=== PATIENT | male | born 1985 | race Caucasian/White ===

== ENCOUNTER 2018-02-02 01:11 | Emergency (ER) | payer BC ==
[~2018-02-02 01:11] MED LIST: TETANUS & DIPHTHERIA TOX,ADULT 0.5 ML VIAL ONE
[2018-02-02] MEDS ORDERED: ACETAMINOPHEN 500 MG TAB ONE (01:39)
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
== END 2018-02-02 03:50 | disposition short-term general hospital (02) ==
LOC: ER 01:11
DX: S02.82XA Fracture of other specified skull and facial bones, left side, initial encounter for closed fracture (principal); Y04.2XXA Assault by strike against or bumped into by another person, initial encounter; Y93.9 Activity, unspecified; Y92.9 Unspecified place or not applicable; Z72.0 Tobacco use; Z23 Encounter for immunization; Z88.0 Allergy status to penicillin
CPT/HCPCS: 70450; 70486; 76377; 90714; 99285

== ENCOUNTER 2021-04-11 04:10 | Observation (INO) | payer BC, SELFPAY ==
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
--- NOTE | 2021-04-11 05:06 | EDPHYS ---
Physician Documentation [facility] Name: Vick Molina Age: 35 yrs Sex: Male : 1985 Arrival Date: 04/11/2021 Time: 04:15 Bed 25 Private MD: AMELIA Physician Zeus Gabriel HPI: 04/11 04:52 This 35 yrs old Male presents to ER via Ambulatory with complaints of S/S OF ken COVID. 04:52 The patient has shortness of breath at rest, with light activity. Onset: The ken symptoms/episode began/occurred 14 day(s) ago. Duration: The symptoms are continuous, and are steadily getting worse. The patient's shortness of breath is aggravated by coughing, exertion, supine position, is alleviated by sitting up, application of supplemental oxygen. The patient presents to the emergency department with wheezing, Current therapy: None, the patient was reported to have audible wheezing, productive cough, trouble breathing. Modifying factors: The symptoms are alleviated by cool environment, the symptoms are aggravated by cold weather, damp environment, exertion, talking. Associated signs and symptoms: Pertinent positives: chest pain, fever, hemoptysis. Severity of symptoms: At their worst the symptoms were moderate in the emergency department the symptoms are unchanged. The patient or guardian reports airway noise, cough, difficulty breathing, flu symptoms, arthralgias, low-grade fever, myalgias, no appetite. Historical: - Allergies: 04:32 PENICILLINS; bb - Home Meds: 04:32 None [Active]; bb - PMHx: 04:32 None; bb - PSHx: 04:32 None; bb - Immunization history:: Client reports having NOT received the Covid vaccine. - Social history:: Smoking status: Patient reports the use of cigarette tobacco products, smokes one pack cigarettes per day. Patient uses alcohol, Patient/guardian denies using street drugs. - Family history:: not pertinent. ROS: 04:52 Constitutional: Negative for fever, chills, and weight loss, Eyes: Negative for injury, ken pain, redness, and discharge, ENT: Negative for injury, pain, and discharge, Neck: Negative for injury, pain, and swelling, Abdomen/GI: Negative for abdominal pain, nausea, vomiting, diarrhea, and constipation, Back: Negative for injury and pain, : Negative for injury, bleeding, discharge, and swelling, MS/Extremity: Negative for injury and deformity, Skin: Negative for injury, rash, and discoloration, Neuro: Negative for headache, weakness, numbness, tingling, and seizure, Psych: Negative for depression, anxiety, suicide ideation, homicidal ideation, and hallucinations, Allergy/Immunology: Negative for hives, rash, and allergies, Endocrine: Negative for neck swelling, polydipsia, polyuria, polyphagia, and marked weight changes, Hematologic/Lymphatic: Negative for swollen nodes, abnormal bleeding, and unusual bruising. 04:52 Cardiovascular: Positive for chest pain. 04:52 Respiratory: Positive for cough, shortness of breath, wheezing, expiratory. Exam: 04:52 Constitutional: This is a well developed, well nourished patient who is awake, alert, ken and in no acute distress. Head/Face: Normocephalic, atraumatic. Eyes: Pupils equal round and reactive to light, extra-ocular motions intact. Lids and lashes normal. Conjunctiva and sclera are non-icteric and not injected. Cornea within normal limits. Periorbital areas with no swelling, redness, or edema. ENT: Nares patent. No nasal discharge, no septal abnormalities noted. Tympanic membranes are normal and external auditory canals are clear. Oropharynx with no redness, swelling, or masses, exudates, or evidence of obstruction, uvula midline. Mucous membranes moist. Neck: Trachea midline, no thyromegaly or masses palpated, and no cervical lymphadenopathy. Supple, full range of motion without nuchal rigidity, or vertebral point tenderness. No Meningismus. Chest/axilla: Normal chest wall appearance and motion. Nontender with no deformity. No lesions are appreciated. Cardiovascular: Regular rate and rhythm with a normal S1 and S2. No gallops, murmurs, or rubs. Normal PMI, no JVD. No pulse deficits. Abdomen/GI: Soft, non-tender, with normal bowel sounds. No distension or tympany. No guarding or rebound. No evidence of tenderness throughout. Back: No spinal tenderness. No costovertebral tenderness. Full range of motion. Male : Normal genitalia with no discharge or lesions. Skin: Warm, dry with normal turgor. Normal color with no rashes, no lesions, and no evidence of cellulitis. MS/ Extremity: Pulses equal, no cyanosis. Neurovascular intact. Full, normal range of motion. Neuro: Awake and alert, GCS 15, oriented to person, place, time, and situation. Cranial nerves II-XII grossly intact. Motor strength 5/5 in all extremities. Sensory grossly intact. Cerebellar exam normal. Normal gait. Psych: Awake, alert, with orientation to person, place and time. Behavior, mood, and affect are within normal limits. 04:52 ECG was reviewed by the Attending Physician. 04:52 Respiratory: moderate respiratory distress is noted, Respirations: labored breathing, that is mild, Breath sounds: bronchial sounds, decreased breath sounds, rhonchi, stridor, is not appreciated, + upper airway congestion. wheezing: inspiratory expiratory is heard in the left posterior upper lobe, right posterior upper lobe, left posterior lower lobe, right posterior middle lobe and right posterior lower lobe, Respiratory rate: 128 Vital Signs: 04:30 BP 124 / 86; Pulse 128; Resp 20 S; Temp 98.3(O); Pulse Ox 99% on R/A; Weight 95.25 kg bb (R); Height 6 ft. 0 in. (182.88 cm) (R); Pain 7/10; 07:15 BP 128 / 87; Pulse 103; Resp 22; Pulse Ox 95% ; Pain 6/10; eo2 08:15 BP 121 / 81; Pulse 101; Resp 19; Pulse Ox 96% ; eo2 09:15 BP 123 / 78; Pulse 100; Resp 20; Temp 99.2; Pulse Ox 96% ; Pain 5/10; eo2 10:00 BP 115 / 78; Pulse 94; Resp 20; Pulse Ox 96% ; eo2 11:00 BP 97 / 63; Pulse 94; Resp 18; Pulse Ox 96% ; eo2 12:00 BP 122 / 84; Pulse 90; Resp 20; Pulse Ox 96% ; Pain 5/10; eo2 13:00 BP 103 / 68; Pulse 86; Resp 17; Pulse Ox 96% ; eo2 13:59 BP 134 / 87; Pulse 91; Resp 18; Pulse Ox 97% on R/A; tm3 04:30 Body Mass Index 28.48 (95.25 kg, 182.88 cm) MDM: 04:42 Patient medically screened. ken 04:58 Differential diagnosis: Anemia Anxiety Reaction asthma, Bronchitis CHF exacerbation, ken Chronic Obstructive Pulmonary Disease acute asthma, exercise-induced asthma, reactive airway, CHF, anaphylaxis, URI, Myocardial Infarction pneumonia, Pneumothorax. Antibiotic administration: Rocephin and Zithromax given. The patient's [place] Deep Vein Thrombosis Score was calculated as follows: Heart Rate >100 BPM (1.5 Pts) Total Score: 0-2 Pts- Low Risk. Differential Diagnosis: Bronchitis Influenza Upper Respiratory Infection Sinusitis Pharyngitis Otitis Media Asthma Exacerbation Viral Syndrome Pneumonia. The patient's pulmonary embolism risk score was calculated as follows: the patients heart rate is greater than 100 beats per minute (1.5 Pts) Total Score: 0-2 points. This patient was found to be at low risk for a pulmonary embolism by using the Well's assessment criteria. Immunization status:. Data reviewed: vital signs, nurses notes. Data interpreted: bus driver/monitor: rate is 128 beats/min, rhythm is normal sinus rhythm, regular, Pulse oximetry: on room air is 99 %. Test interpretation: by ED physician or midlevel provider: ECG, plain radiologic studies. Counseling: I had a detailed discussion with the patient and/or guardian regarding: the historical points, exam findings, and any diagnostic results supporting the discharge/admit diagnosis, the presence of at least one elevated blood pressure reading (>120/80) during this emergency department visit, lab results, radiology results, the need for further work-up and treatment in the hospital. 04/11 04:38 Order name: COVID-19/FLU A+B (Document "Date of Onset" if Symptomatic) [facility] 04/11 04:39 Order name: COVID-19/FLU A+B; Complete Time: 06:03 [facility] 04/11 04:43 Order name: Basic Metabolic Panel [facility] 04/11 04:43 Order name: CBC with Diff [facility] 04/11 04:43 Order name: LFT's [facility] 04/11 04:43 Order name: Magnesium [facility] 04/11 04:43 Order name: NT PRO-BNP; Complete Time: 06:03 [facility] 04/11 04:43 Order name: PT-INR; Complete Time: 06:03 [facility] 04/11 04:43 Order name: D-Dimer; Complete Time: 06:03 [facility] 04/11 04:44 Order name: Basic Metabolic Panel; Complete Time: 06:03 [facility] 04/11 04:44 Order name: CBC with Automated Diff; Complete Time: 06:03 [facility] 04/11 04:44 Order name: Liver (Hepatic) Function; Complete Time: 06:03 [facility] 04/11 04:44 Order name: Magnesium; Complete Time: 06:03 [facility] 04/11 04:51 Order name: CRP; Complete Time: 06:03 [facility] 04/11 04:51 Order name: Ferritin; Complete Time: 06:03 [facility] 04/11 04:51 Order name: Lipase; Complete Time: 06:03 [facility] 04/11 04:59 Order name: Blood Culture Adult (2) 2 04/11 05:02 Order name: Troponin High Sensitivity; Complete Time: 06:03 [facility] 04/11 05:10 Order name: Manual Differential; Complete Time: 06:03 [facility] 04/11 11:50 Order name: C-Reactive Protein [facility] 04/11 11:50 Order name: C-Reactive Protein [facility] 04/11 11:50 Order name: CBC with Automated Diff [facility] 04/11 11:50 Order name: CBC with Automated Diff [facility] 04/11 11:50 Order name: Comprehensive Metabolic Panel [facility] 04/11 11:50 Order name: Comprehensive Metabolic Panel [facility] 04/11 11:50 Order name: D-Dimer [facility] 04/11 11:50 Order name: D-Dimer [facility] 04/11 11:50 Order name: Ferritin [facility] 04/11 11:50 Order name: Ferritin [facility] 04/11 04:43 Order name: XRAY Chest (1 view) [facility] 04/11 04:43 Order name: EKG; Complete Time: 04:44 [facility] 04/11 04:43 Order name: Cardiac monitoring; Complete Time: 05:04 [facility] 04/11 04:43 Order name: EKG - Nurse/Tech; Complete Time: 04:52 [facility] 04/11 04:43 Order name: IV Saline Lock; Complete Time: 04:52 [facility] 04/11 04:43 Order name: Labs collected and sent; Complete Time: 04:52 [facility] 04/11 04:43 Order name: O2 Per Protocol; Complete Time: 04:52 [facility] 04/11 04:43 Order name: O2 Sat Monitoring; Complete Time: 04:52 [facility] 04/11 04:51 Order name: CT Chest For PE Angio [facility] 04/11 11:50 Order name: Regular [facility] 04/11 11:50 Order name: Lipid Profile [facility] 04/11 11:50 Order name: Lipid Profile [facility] EC:52 Rate is 128 beats/min. Rhythm is regular. QRS [place] is Normal. [place] interval is normal. ken QRS interval is normal. QT interval is normal. No Q waves. T waves are Normal. No ST changes noted. Clinical impression: Sinus tachycardia and No evidence of ischemia. Interpreted by me. Reviewed by me. Administered Medications: 04:40 Drug: Xopenex (levalbuterol) 2.5 mg Route: Inhalation; bb 07:00 Follow up: Response: No adverse reaction eo2 04:40 Drug: AtroVENT (ipratropium) Aerosol 0.5 mg Route: Inhalation; bb 07:00 Follow up: Response: No adverse reaction eo2 04:45 Drug: Aspirin Chewable Tablet 324 mg Route: PO; bb 07:00 Follow up: Response: No adverse reaction eo2 05:00 Drug: NS 0.9% 1000 ml Route: IV; Rate: 1 bolus; Site: left antecubital; bb 07:00 Follow up: Response: No adverse reaction; IV Status: Completed infusion; IV Intake: eo2 1000ml 05:00 Drug: Pepcid (famotidine) 20 mg Route: IVP; Site: left antecubital; bb 07:00 Follow up: Response: No adverse reaction eo2 05:05 Drug: Zithromax (azithromycin) 500 mg Route: PO; bb 07:00 Follow up: Response: No adverse reaction eo2 05:08 Drug: SOLU-Medrol (methylPrednisoLONE) 125 mg Route: IVP; Site: left antecubital; bb 07:00 Follow up: Response: No adverse reaction eo2 07:57 Drug: NS 0.9% 1000 ml Route: IV; Rate: 1 bolus; Site: left antecubital; eo2 09:00 Follow up: IV Status: Completed infusion; IV Intake: 1000ml eo2 09:35 Drug: vancoMYCIN 2 grams Route: IVPB; Rate: calculated rate; Site: left hand; eo2 12:00 Follow up: IV Status: Completed infusion; IV Intake: 500ml eo2 09:35 Drug: Potassium Chloride 20 mEq Route: IV; Rate: per protocol; Site: left antecubital; eo2 11:33 Follow up: Response: No adverse reaction; IV Status: Completed infusion; IV Intake: eo2 100ml 10:25 Drug: NS 0.9% with KCl 20 mEq/L 1000 ml Route: IV; Rate: 125 ml/hr; Site: left eo2 antecubital; 14:01 Follow up: Response: No adverse reaction; IV Status: Infusion continued upon admission eo2 Disposition Summary: 04/11/21 05:05 Hospitalization Ordered Hospitalization Status: Inpatient Admission ken Provider: Carlos Robledo cha [facility] ken Condition: Fair ken Problem: new ken Symptoms: have improved ken Bed/Room Type: Standard [facility] Room Assignment: 425(04/11/21 12:47) ss Diagnosis - Dyspnea ken - Acute upper respiratory infection, unspecified - covid exposure, not vaccionated ken - Hypokalemia ken - Pneumonia, unspecified organism ken - Coronavirus infection, unspecified ken - Pneumonia due to SARS-associated coronavirus ken Forms: - Medication Reconciliation Form ken - SBAR form [facility] Signatures: Dispatcher [employer] EDMS Zeus Gabriel MD MD ken Grazyna Mi, EMPERATRIZ RN bb Negra Henley RN RN ss Do Lin RN RN eo2 Corrections: (The following items were deleted from the chart) 05:02 04:44 TROPONIN (EMERG DEPT USE ONLY)+C.LAB.BRZ ordered. EDMO EDMS 12:47 05:05 [facility]
[2021-04-11 05:08] LABS: Absolute Lymphocytes (CBC) 1.5 K/uL (0.7-4.9); Hematocrit 41.8 % (39.6-49.0); MPV 8.6 fL (7.6-11.3); RBC Red Blood Cell Count 4.47 M/uL (4.33-5.43)
[2021-04-11] MEDS ORDERED: ASPIRIN 81 MG CHEWABLE TABLET ONE (05:08)
[2021-04-11] MEDS ORDERED: METHYLPREDNISOLONE 125 MG INJ ONE (05:08)
[2021-04-11] MEDS ORDERED: FAMOTIDINE 20 MG/2 ML VIAL IV ONE (05:09)
[2021-04-11] MEDS ORDERED: NA CHLORIDE 0.9% 50 ML ONE (05:09)
[2021-04-11] MEDS ORDERED: IPRATROPIUM BROM 0.5MG/2.5ML ONE (05:09)
[2021-04-11] MEDS ORDERED: AZITHROMYCIN 250 MG TAB ONE (05:09)
[2021-04-11] MEDS ORDERED: LEVALBUTEROL 1.25 MG/3 ML NEB ONE (05:09)
[2021-04-11] MEDS ORDERED: CEFTRIAXONE 1000 MG/VIAL ONE (05:09)
[2021-04-11] MEDS ORDERED: NA CHLORIDE 0.9% 1,000 ML ONE ×2 (05:09→07:41)
[2021-04-11 05:12] LABS: Protime INR 1.41
[2021-04-11 05:28] LABS: Albumin 3.2 g/dL (3.4-5.0); Bilirubin Direct 0.4 mg/dL (0-0.2); Bilirubin Total 1.6 mg/dL (0.2-1.0); Protein, Total 8.4 g/dL (6.4-8.2); Troponin High Sensitivity 6.3 pg/mL (<58.9)
[2021-04-11 05:32] LABS: Blood Morphology Comment NOT SEEN (NOT SEEN); Platelet Estimate ADEQ
[2021-04-11 05:33] LABS: Ferritin 526.1 ng/mL (26-388)
[2021-04-11 05:56] LABS: SARS-COV-2 RT PCR POSITIVE (NEGATIVE)
--- NOTE | 2021-04-11 07:19 | RAD REPORT ---
EXAM DESCRIPTION: CT - Chest For Pe Angio - 04/11/2021 6:50 am CLINICAL HISTORY: Chest pain. Dyspnea;Cough COMPARISON: No comparisons TECHNIQUE: CT angiogram of the pulmonary arteries was performed with MIP. All CT scans are performed using dose optimization technique as appropriate and may include automated exposure control or mA/KV adjustment according to patient size. FINDINGS: No evidence of pulmonary thromboembolism. No acute aortic finding demonstrated. Moderate airspace consolidation is seen left lower lobe most compatible with bronchopneumonia. No significant pericardial or pleural fluid. No concerning bony finding. IMPRESSION: No evidence of pulmonary thromboembolism. Airspace consolidation in the left lower lobe most likely represents bronchopneumonia.
[2021-04-11] MEDS ORDERED: NS KCL 20MEQ 1,000 ML IV ONE (07:41)
[2021-04-11] MEDS ORDERED: KCL 20 MEQ/100 mL IVPB 100 ML IV ONE ×2 (08:00→09:28)
[2021-04-11] MEDS ORDERED: VANCOMYCIN 2 GM in NA CHLORIDE 0.9% 500 ML IVPB ONE (08:00)
--- NOTE | 2021-04-11 08:37 | RAD REPORT ---
EXAM DESCRIPTION: RAD - Chest Single View - 04/11/2021 6:15 am CLINICAL HISTORY: Cough;Chest pain Chest pain. COMPARISON: Chest Single View dated 06/11/2017 FINDINGS: Portable technique limits examination quality. Moderate airspace consolidation in the left lower lobe likely represents pneumonia. The lungs are oth erwise grossly clear. The heart is normal in size. No displaced fractures.
[2021-04-11] MEDS ORDERED: ONDANSETRON 4 MG/2 ML VIAL IV PRN (11:45)
[2021-04-11] MEDS ORDERED: ACETAMINOPHEN 500 MG TAB PO PRN (11:45)
[2021-04-11] MEDS: NA CHLORIDE 0.9% 1,000 ML IV SCH ×2 (12:00→19:45)
[2021-04-11 14:40] VITALS: BMI 4100.8
[2021-04-11] MEDS ORDERED: MORPHINE 4 MG/ML SYR IV ONE (18:10)
[2021-04-11] MEDS: METHYLPREDNISOLONE 125 MG INJ IV SCH (20:56)
[2021-04-11] MEDS: APIXABAN 5 MG TABLET PO SCH (20:56)
[2021-04-12 00:22] VITALS: O2SAT 98
[2021-04-12 06:10] LABS: Absolute Lymphocytes (CBC) 0.7 K/uL (0.7-4.9); Hematocrit 36.7 % (39.6-49.0); Lymphocytes % 5.3 % (15.3-44.8); MPV 8.7 fL (7.6-11.3); RBC Red Blood Cell Count 3.89 M/uL (4.33-5.43)
[2021-04-12 06:47] LABS: ALT/SGPT 16 U/L (12-78); AST/SGOT 7 U/L (15-37); Albumin 2.4 g/dL (3.4-5.0); Alkaline Phosphatase 63 U/L (45-117); BUN Blood Urea Nitrogen 15 mg/dL (7-18); Bicarbonate 23 mmol/L (21-32); Bilirubin Total 0.3 mg/dL (0.2-1.0); Glucose Level 161 mg/dL (74-106); HDL Cholesterol 13 mg/dL (40-60); Potassium 3.6 mmol/L (3.5-5.1); Protein, Total 7.1 g/dL (6.4-8.2); Sodium Level 141 mmol/L (136-145)
[2021-04-12 06:48] LABS: Ferritin 666.5 ng/mL (26-388); LDL Cholesterol, Calculated 92 (<130)
--- NOTE | 2021-04-12 07:50 | EKG ---
Test Date: 2021-04-11 Test Time: 04:42:53 [employer] Project Manager: SOTO MEASUREMENT RESULTS: Intervals: Rate: 109 W[place]: 134 QRSD: 106 QT: 348 QTc: 468 [place]: P: 68 WV: 134 QRS: 68 T: 68 INTERPRETIVE STATEMENTS: Sinus tachycardia Right atrial enlargement RSR' or QR pattern in V1 suggests right ventricular conduction delay Borderline ECG Compared to ECG 06/11/2017 14:38:56 Atrial abnormality now present Sinus rhythm no longer present Sinus arrhythmia no longer present Electronically Signed On 04-12-21 07:45:54 BLOWN FILM EXTRUSION OPERATOR by Chilango Navarro
[2021-04-12] MEDS: METHYLPREDNISOLONE 125 MG INJ IV SCH (08:34)
[2021-04-12] MEDS: APIXABAN 5 MG TABLET PO SCH (08:34)
[2021-04-12] MEDS ORDERED: HYDROCODONE/APAP 10/325 TAB PO PRN (10:43)
--- NOTE | 2021-04-12 10:51 | P.HP ---
Certification for Inpatient Patient admitted to: Inpatient With expected LOS: >2 Midnights Patient will require the following post-hospital care: None Practitioner: I am a practitioner with admitting privileges, knowledge of patient current condition, hospital course, and medical plan of care. Services: Services provided to patient in accordance with Admission requirements found in Title 42 Section 412.3 of the Code of Federal Regulations Patient History Date of Service: 04/11/21 Reason for admission: Hypoxemia History of Present Illness: Patient is a 35-year-old gentleman who came to the hospital with chest discomfort. Patient was recently diagnosed with COVID-19. Patient has had COVID in the past. Patient has not been vaccinated. He came to the emergency room for further evaluation. In the emergency room, chest x-ray showed bilateral infiltrates and CT scan was negative for pulmonary embolism. Decision was made to admit the patient to the hospital for further evaluation. Allergies Penicillins Allergy (Verified 04/11/21 19:43) Itching/Hives/Rash Home Medications: NK [No Home Meds] 04/11/21 - Past Medical/Surgical History Diabetic: No -: COVID-19 Past Surgical History: Patient denies surgical history - Family History Father Family History: Reviewed- Non-Contributory - Social History Smoking Status: Former smoker Alcohol use: Yes Caffeine use: Yes Place of Residence: Home Review of Systems 10-point ROS is otherwise unremarkable Physical Examination - Vital Signs Temperature: 96.7 F Blood Pressure: 112/74 Pulse: 63 Respirations: 16 Pulse Ox (%): 98 - Physical Exam General: Alert, In no apparent distress, Oriented x3 HEENT: Atraumatic, PERRLA, Mucous membr. moist/pink, EOMI, Sclerae nonicteric Neck: Supple, 2+ carotid pulse no bruit, No LAD, Without JVD or thyroid abnormality Respiratory: Diminished, Rhonchi/gurgles Cardiovascular: Regular rate/rhythm, Normal S1 S2, No murmurs Gastrointestinal: Normal bowel sounds, Soft and benign, Non-distended, No tenderness Musculoskeletal: No clubbing, No swelling, No tenderness Integumentary: No rashes Neurological: Normal gait, Normal speech, Normal strength at 5/5 x4 extr, Normal tone, Sensation intact, Cranial nerves 3-12 intact, Normal affect Lymphatics: No axilla or inguinal lymphadenopathy Assessment & Plan - Problems (Diagnosis) (1) Pneumonia due to COVID-19 virus Current Visit: Yes Status: Acute (2) Pleuritic chest pain Current Visit: Yes Status: Acute - Plan 1. IV steroids 2. O2 per protocol 3. Pulmonary consultation 4. Monitor labs 5. We will address vaccination status 6. If doing well may be able to discharge on Paxlovid Discharge Plan: Home Plan to discharge in: Greater than 2 days - Advance Directives Does patient have a Living Will: Yes Does patient have a Durable POA for Healthcare: No - Code Status/Comfort Care Code Status Assessed: Yes Code Status: Full Code Critical Care: No Time Spent Managing PTS Care (In Minutes): 45
[2021-04-12 12:52] VITALS: BP 133/86; TEMP 97.3
== END 2021-04-12 13:45 | disposition home or self-care (01) ==
LOC: ER 04:10 → ERHOLD 11:59 → 4TH 13:48
PROVIDERS: ADMIT Hospitalist; ATTEND Hospitalist
DX: U07.1 COVID-19 (principal); J12.82 Pneumonia due to coronavirus disease 2019; E87.6 Hypokalemia; Z87.891 Personal history of nicotine dependence; Z88.0 Allergy status to penicillin
CPT/HCPCS: 0240U; 36415; 71045; 71275; 80048; 80053; 80061; 80076; 82728; 83690; 83735; 83880; 84484; 85025; 85379; 85610; 86140; 87040; 93005; 96361; 96365; 96368; 96375; 99285; G0378; J2930; J3370; J3480; J7030; J7040; Q9967

== ENCOUNTER 2024-01-10 04:49 | Emergency (ER) | payer SELFPAY ==
[2024-01-10] MEDS ORDERED: NA CHLORIDE 0.9% 2,000 ML ONE (05:28)
[2024-01-10] MEDS ORDERED: THIAMINE 200 MG/2 ML INJ ONE (05:28)
[2024-01-10 05:36] LABS: Specific Gravity 1.015 (1.005-1.030); Urine Bilirubin NEGATIVE (Negative); Urine Blood Negative (Negative); Urine Clarity Clear (Clear); Urine Color Light-Yellow (Yellow); Urine Glucose NEGATIVE (Negative); Urine Ketones NEGATIVE (Negative); Urine Microscopic Reflex YN NO UMIC; Urine Nitrite NEGATIVE (Negative); Urine Protein NEGATIVE (Negative); Urine Urobilinogen Normal (Normal)
[2024-01-10 05:38] LABS: Absolute Eosinophils 0.2 K/uL (0-0.5); Absolute Lymphocytes (CBC) 4.3 K/uL (0.7-4.9); Absolute Monocytes 0.7 K/uL (0.1-1.3); Absolute Neutrophil 5.7 K/uL (1.8-8.0); Basophils % 0.4 % (0-1.3); Eosinophils % 2.1 % (0-4.4); Hematocrit 45.8 % (39.6-49.0); Hemoglobin 16.2 g/dL (13.6-17.9); Lymphocytes % 38.9 % (15.3-44.8); MCH 33.1 pg (27.0-35.0); MCHC 35.3 g/dL (32.0-36.0); MCV 93.8 fL (80-100); Monocytes % 6.4 % (3.3-12.3); Neutrophils % 52.2 % (41.7-73.7); Nucleated Red Blood Cells % 0.3 % (0-0); Platelets 343 thou/uL (152-406); RBC Red Blood Cell Count 4.89 M/uL (4.33-5.43); Red Cell Distribution Width 12.7 % (12.1-15.2)
[2024-01-10 05:48] LABS: ALT/SGPT 47 U/L (16-61); AST/SGOT 19 U/L (15-37); Albumin 4.4 g/dL (3.4-5.0); Albumin/Globulin Ratio 1.1 (1.1-1.8); Alkaline Phosphatase 74 U/L (45-117); Anion Gap 9.1 mEq/L (5.0-15.0); BUN Blood Urea Nitrogen 9 mg/dL (7-18); Bicarbonate 26 mEq/L (21-32); Bilirubin Direct < 0.2 mg/dL (0-0.2); Bilirubin Indirect, Calculated 0.2 mg/dL (0.2-0.8); Bilirubin Total 0.4 mg/dL (0.2-1.0); Glomerular Filtration Rate 117 ml/min (=/>90); Glucose Level 100 mg/dL (74-106); Potassium 4.1 mEq/L (3.5-5.1); Protein, Total 8.4 g/dL (6.4-8.2); Sodium Level 142 mEq/L (136-145); Troponin High Sensitivity 4.6 pg/mL (<58.9)
[2024-01-10 05:54] LABS: Barbiturates NEGATIVE (NEGATIVE); Benzodiazepines NEGATIVE (NEGATIVE); Cocaine NEGATIVE (NEGATIVE); METHAMPHETAM NEGATIVE (NEGATIVE); Methadone NEGATIVE (NEGATIVE); Opiates NEGATIVE (NEGATIVE); Phencyclidine NEGATIVE (NEGATIVE); THC Cannibis NEGATIVE (NEGATIVE)
[2024-01-10] MEDS ORDERED: NA CHLORIDE 0.9% 1,000 ML ONE (06:44)
[2024-01-10] MEDS ORDERED: LEVETIRACETAM 500 MG/5 ML VIAL IV ONE (06:44)
[2024-01-10] MEDS ORDERED: NA CHLORIDE 0.9% 100 ML ONE (06:45)
--- NOTE | 2024-01-10 07:02 | EDPHYS ---
Physician Documentation [facility] Name: Vick Molina Age: 38 yrs Sex: Male : 1985 Arrival Date: 01/10/2024 Time: 04:49 Bed 9 Private MD: ED Physician Sarkis Spencer HPI: 01/09 04:58 This 38 yrs old Male presents to ER via Unassigned with complaints of ETOH sp4 Abuse, Unresponsive. 05:34 Patient brought in by EMS and he is currently in police custody. Patient was being sp4 processed as driving while intoxicated and is under arrest, when he became unresponsive in shelter. Patient is brought here with police escort. PI and ROS not available secondary to unresponsive condition. Patient is reported to be intoxicated.. Historical: - Allergies: 05:01 PENICILLINS; jj7 - PMHx: 05:01 None; jj7 - PSHx: 05:01 None; jj7 - Immunization history:: Adult Immunizations unknown. - Social history:: Unknown . - Family history:: not pertinent. ROS: 05:35 Constitutional: Reported intoxication, otherwise not obtainable sp4 05:35 All other systems are negative, 05:35 Unable to obtain ROS due to altered mental status, sp4 Exam: 05:36 Constitutional: This is a well developed, well nourished patient who is not sp4 responsive. No sings of traumatic injury Head/Face: Normocephalic, atraumatic. Eyes: Pupils equal round and reactive to light, extra-ocular motions intact. Lids and lashes normal. Conjunctiva and sclera are not injected. Cornea within normal limits. Periorbital areas with no swelling, redness, or edema. ENT: Nares patent. No nasal discharge, no septal abnormalities noted. Tympanic membranes are normal and external auditory canals are clear. Oropharynx with no redness, swelling, or masses, exudates, or evidence of obstruction, uvula midline. Mucous membranes moist. Neck: Trachea midline, no thyromegaly or masses palpated, and no cervical lymphadenopathy. Supple, full range of motion without nuchal rigidity, or vertebral point tenderness. Chest/axilla: Normal chest wall appearance and motion. Nontender with no deformity. No lesions are appreciated. Cardiovascular: Regular rate and rhythm with a normal S1 and S2. No gallops, murmurs, or rubs. Normal PMI, no JVD. No pulse deficits. Respiratory: Lungs have equal breath sounds bilaterally, clear to auscultation and percussion. No rales, rhonchi or wheezes noted. No increased work of breathing, no retractions or nasal flaring. Abdomen/GI: Soft, with normal bowel sounds. No distension or tympany. No guarding or rebound. No evidence of tenderness throughout. Back: No spinal tenderness. No costovertebral tenderness. Skin: Warm, dry with normal turgor. Normal color with no rashes, no lesions, and no evidence of cellulitis. MS/ Extremity: Pulses equal, no cyanosis. Neurovascular intact. Full, normal range of motion. Neuro: Unresponsive at this time, exam is limited. 06:29 ECG was reviewed by the Attending Physician. EKG 0 619 normal sinus rhythm sp4 Vital Signs: 04:52 BP 118 / 81; Pulse 62; Resp 17; Temp 97.9; Pulse Ox 99% ; Weight 94.8 kg; Height 5 ft. j7 8 in. ; 06:00 BP 158 / 90; Pulse 82; Resp 16; Pulse Ox 100% on 2 lpm NC; j7 08:00 BP 148 / 78; Pulse 81; Resp 18; Pulse Ox 98% on R/A; ph 10:00 BP 138 / 78; Pulse 81; Resp 18; Temp 97.5; Pulse Ox 98% on R/A; ph 04:52 Body Mass Index 31.78 (94.80 kg, 172.72 cm) 7 [place] Coma Score: 06:28 Eye Response: to pain(2). Motor Response: withdraws from pain(4). Verbal Response: sp4 incomprehensible(2). Total: 8. MDM: 04:59 Patient medically screened. sp4 06:44 Differential Diagnosis: electrolyte abnormality, alcohol intoxication, hypoglycemia, sp4 meningitis, overdose, pneumonia, seizure. Data reviewed: vital signs, nurses notes. Consideration of Admission/Observation Escalation of care including admission/observation considered. ED course: Acute intoxication, has difficult time waking up. Will continue monitoring in ER and will provide additional hydration. . 07:00 ED course: Patient woke up and responded. This time he remains somewhat intoxicated but sp4 stable for discharge home with adult supervision. . 07:03 ED course: Patient was strongly advised to discontinue use of alcohol and join local [facility] alcoholic Anonymous club. . 01/09 05:01 Order name: Basic Metabolic Panel; Complete Time: 06:04 4 01/09 05:01 Order name: CBC with Diff; Complete Time: 05:41 4 01/09 05:01 Order name: Hepatic Function; Complete Time: 06:04 4 01/09 05:01 Order name: Troponin High Sensitivity; Complete Time: 06:04 4 01/09 05:01 Order name: UDS; Complete Time: 06:04 4 01/09 05:01 Order name: Urinalysis w/ reflexes; Complete Time: 05:41 4 01/09 05:01 Order name: Alcohol Level; Complete Time: 06:04 4 01/09 06:40 Order name: ABG [facility] 01/09 05:01 Order name: CT Head Brain wo Cont [facility] 01/09 05:01 Order name: EKG; Complete Time: 05:01 [facility] 01/09 05:01 Order name: Cardiac monitoring; Complete Time: 05:35 4 01/09 05:01 Order name: EKG - Nurse/Tech; Complete Time: 06:23 4 01/09 05:01 Order name: IV Saline Lock; Complete Time: :35 4 01/09 05:01 Order name: Labs collected and sent; Complete Time: 05:35 4 01/09 05:01 Order name: NPO; Complete Time: 05:35 4 01/09 05:01 Order name: O2 Per Protocol; Complete Time: 05:35 4 01/09 05:01 Order name: O2 Sat Monitoring; Complete Time: 4 01/09 05:02 Order name: Rao; Complete Time: 05:34 sp4 EC:19 Rate is 82 beats/min. Rhythm is regular, Normal Sinus Rhythm. QRS Kulm is Normal. ND sp4 interval is normal. QRS interval is normal. QT interval is normal. No Q waves. T waves are Normal. No ST changes noted. Clinical impression: No evidence of ischemia. Interpreted by me. Reviewed by me. Administered Medications: 05:34 Drug: Thiamine IV 100 mg IV at bolus once Route: IV; Rate: bolus; Site: right jj7 antecubital; 07:03 Follow up: Response: No adverse reaction mt4 10:14 Follow up: Response: No adverse reaction; IV Status: Completed infusion; IV Intake: kb3 600ml 05:35 Drug: NS 0.9% IV 1000 ml IV at 1 bolus Per protocol; to be given as a bolus over 60 jj7 minutes Route: IV; Rate: 1 bolus; Site: right antecubital; 07:04 Follow up: Response: No adverse reaction; IV Status: Infusion continued; IV Intake: mt4 1000ml 09:00 Follow up: Response: No adverse reaction; IV Status: Completed infusion; IV Intake: kb3 1000ml 05:35 Drug: NS 0.9% IV 1000 ml IV at 1 bolus Per protocol; to be given as a bolus over 60 jj7 minutes Route: IV; Rate: 1 bolus; Site: right antecubital; 07:04 Follow up: Response: No adverse reaction; IV Status: Completed infusion; IV Intake: mt4 1000ml 06:58 Drug: Keppra IV 1000 mg IV at bolus once Route: IV; Rate: bolus; Site: left antecubital;mt4 10:13 Follow up: Response: No adverse reaction; IV Status: Completed infusion; IV Intake: kb3 1000ml 06:59 Drug: NS 0.9% IV 1000 ml IV at 1 bolus Per protocol; to be given as a bolus over 60 mt4 minutes Route: IV; Rate: 1 bolus; Site: right antecubital; 09:00 Follow up: Response: No adverse reaction; IV Status: Completed infusion; IV Intake: kb3 1000ml Disposition Summary: 01/10/24 07:01 Discharge Ordered Notes: Location: Home sp4 Problem: new sp4 Symptoms: have improved sp4 Condition: Stable sp4 Diagnosis - Alcohol abuse with intoxication sp4 - Syncope and collapse sp4 Followup: sp4 - With: Private Physician - When: As needed - Reason: Discharge Instructions: - Discharge Summary Sheet sp4 - Alcohol Intoxication sp4 Forms: - Patient Portal Instructions sp4 Signatures: Dispatcher [employer] Luke Hollis RN RN jj7 Sarkis Spencer MD MD sp4 Ismael Qucah RN RN mt4 My Merchant RN kb3 Corrections: (The following items were deleted from the chart) 07:13 06:41 AMMONIA+C.LAB.BR ordered. EDMS EDMS
--- NOTE | 2024-01-10 07:02 | ER ---
Nurse's Notes [facility] Name: Vick Molina Age: 38 yrs Sex: Male : 1985 Arrival Date: 01/10/2024 Time: 04:49 Bed 9 Private MD: Diagnosis: Alcohol abuse with intoxication;Syncope and collapse Presentation: 01/09 04:52 Chief complaint: EMS states: PT WAS ARRESTED FOR DWI. WHILE IN [facility] BEING PROCESSED TO [facility] BE BROUGHT TO THE ER FOR A LEGAL DRAW PT BECAME UNRESPONSIVE. Coronavirus screen: At this time, the client does not indicate any symptoms associated with coronavirus-19. Ebola Screen: No symptoms or risks identified at this time. Initial Sepsis Screen: Does the patient meet any 2 criteria? Altered Mental Status. Does the patient have a suspected source of infection? No. Patient's initial sepsis screen is negative. Risk Assessment: Do you want to hurt yourself or someone else? Unable to obtain. Onset of symptoms. 04:52 Method Of Arrival: EMS: [facility] 04:52 Acuity: JOS 2 [facility] Triage Assessment: 05:01 General: Appears in no apparent distress. comfortable, Behavior is unresponsive. Pain: [facility] Unable to use pain scale. Patient is unresponsive. Neuro: Level of Consciousness is unresponsive. Historical: - Allergies: 05:01 PENICILLINS; jj7 - PMHx: 05:01 None; jj7 - PSHx: 05:01 None; jj7 - Immunization history:: Adult Immunizations unknown. - Social history:: Unknown . - Family history:: not pertinent. Screenin:37 Abuse screen: Denies threats or abuse. Nutritional screening: No deficits noted. j7 Tuberculosis screening: No symptoms or risk factors identified. Assessment: 05:02 Reassessment: SEE TRIAGE ASSESSMENT. [facility] 07:02 Reassessment: MD gave verbal order okay to cancel [facility] lab. mt4 07:30 Reassessment: Patient appears in no apparent distress at this time. Patient and/or ph family updated on plan of care and expected duration. Pain level reassessed. Pt asleep, awakens to verbal stimuli, attempted to call SO for ride home, no answer. 09:00 Reassessment: Patient appears in no apparent distress at this time. No changes from ph previously documented assessment. Patient and/or family updated on plan of care and expected duration. Pain level reassessed. Message left for to call ED. 12:06 Reassessment: Patient appears in no apparent distress at this time. Patient and/or ph family updated on plan of care and expected duration. Pain level reassessed. P tis sleeping w/ stable VS, received call from who states she is on the way to pick him up. Vital Signs: 04:52 BP 118 / 81; Pulse 62; Resp 17; Temp 97.9; Pulse Ox 99% ; Weight 94.8 kg; Height 5 ft. jj7 8 in. ; 06:00 BP 158 / 90; Pulse 82; Resp 16; Pulse Ox 100% on 2 lpm NC; jj7 08:00 BP 148 / 78; Pulse 81; Resp 18; Pulse Ox 98% on R/A; ph 10:00 BP 138 / 78; Pulse 81; Resp 18; Temp 97.5; Pulse Ox 98% on R/A; ph 04:52 Body Mass Index 31.78 (94.80 kg, 172.72 cm) jj7 [place] Coma Score: 06:28 Eye Response: to pain(2). Motor Response: withdraws from pain(4). Verbal Response: sp4 incomprehensible(2). Total: 8. ED Course: 04:51 Patient arrived in ED. jj7 04:58 Sarkis Spenecr MD is Attending Physician. sp4 05:01 Triage completed. jj7 05:01 Arm band placed on right wrist. Patient placed in an exam room, on a stretcher. jj7 05:15 Inserted saline lock: 20 gauge in right antecubital area, using aseptic technique. jj7 Blood collected. Flushed with 10 mL NS. 05:21 Rao cath inserted, using sterile technique, 16 Fr., by ok, balloon inflated, to jj7 gravity drainage, urine specimen collected. Patient tolerated well. 05:35 Basic Metabolic Panel Sent. jj7 05:35 CBC with Diff Sent. jj7 05:35 Hepatic Function Sent. jj7 05:35 Troponin High Sensitivity Sent. jj7 05:35 UDS Sent. jj7 05:35 Urinalysis w/ reflexes Sent. jj7 05:55 CT Head Brain wo Cont In Process Unspecified. EDMS 11:50 called patients Sakina wooten [phone]. no answer. ap3 12:05 Olive Villegas, RN is Primary Nurse. ph 12:23 IV discontinued, intact, bleeding controlled, No redness/swelling at site. Pressure ap3 dressing applied. Administered Medications: 05:34 Drug: Thiamine IV 100 mg IV at bolus once Route: IV; Rate: bolus; Site: right jj7 antecubital; 07:03 Follow up: Response: No adverse reaction mt4 10:14 Follow up: Response: No adverse reaction; IV Status: Completed infusion; IV Intake: kb3 600ml 05:35 Drug: NS 0.9% IV 1000 ml IV at 1 bolus Per protocol; to be given as a bolus over 60 jj7 minutes Route: IV; Rate: 1 bolus; Site: right antecubital; 07:04 Follow up: Response: No adverse reaction; IV Status: Infusion continued; IV Intake: mt4 1000ml 09:00 Follow up: Response: No adverse reaction; IV Status: Completed infusion; IV Intake: kb3 1000ml 05:35 Drug: NS 0.9% IV 1000 ml IV at 1 bolus Per protocol; to be given as a bolus over 60 jj7 minutes Route: IV; Rate: 1 bolus; Site: right antecubital; 07:04 Follow up: Response: No adverse reaction; IV Status: Completed infusion; IV Intake: mt4 1000ml 06:58 Drug: Keppra IV 1000 mg IV at bolus once Route: IV; Rate: bolus; Site: left antecubital;mt4 10:13 Follow up: Response: No adverse reaction; IV Status: Completed infusion; IV Intake: kb3 1000ml 06:59 Drug: NS 0.9% IV 1000 ml IV at 1 bolus Per protocol; to be given as a bolus over 60 mt4 minutes Route: IV; Rate: 1 bolus; Site: right antecubital; 09:00 Follow up: Response: No adverse reaction; IV Status: Completed infusion; IV Intake: kb3 1000ml Intake: 07:04 IV: 1000ml; Total: 1000ml. mt4 07:04 IV: 1000ml; Total: 2000ml. mt4 09:00 IV: 1000ml; Total: 3000ml. kb3 09:00 IV: 1000ml; Total: 4000ml. kb3 10:13 IV: 1000ml; Total: 5000ml. kb3 10:14 IV: 600ml; Total: 5600ml. kb3 Outcome: 07:01 Discharge ordered by MD. jarquin 12:23 Discharged to home via wheelchair, with friend, ap3 12: Condition: good 12:23 Discharge instructions given to patient, friend, Instructed on discharge instructions, Demonstrated understanding of instructions, follow-up care, 12:23 Patient left the ED. ap3 Signatures: Dispatcher [employer] EDNJ Olive Villegas, RN RN Jane Eduardo RN RN ap3 My Merchant RN RN kb3 Luke Smith RN RN jj7 Sarkis Spencer MD MD sp4 Ismael Quach RN RN mt4
--- NOTE | 2024-01-10 07:11 | RAD REPORT ---
CLINICAL HISTORY: AMS. COMPARISON: CT Head 01/31/2018. TECHNIQUE: CT HEAD WITHOUT IV CONTRAST on 01/10/2024 5:01 AM CDT This exam was performed according to our departmental dose-optimization program, which includes autom ated exposure control, adjustment of the mA and/or kV according to patient size and/or use of iterative reconstruction technique. FINDINGS: There is no acute hemorrhage, mass effect or midline shift. De La Cruz-white differentiation is preserved. There is no hydrocephalus. There is no significant volume loss for age. The calvarium is intact. Orbits and globes are unremarkable. There is mild thickening of the maxillar y sinuses and right sphenoid sinus. Mastoid air cells are clear. IMPRESSION: No acute intracranial findings. Electronically signed by: Delvis Tolentino MD 01/10/2024 06:41 AM CDT RP Due to temporary technical issues with the PACS/[employer] reporting system, reports are being willie d by the in-house radiologist without review as a courtesy to ensure prompt reporting the interpreting radiologist is fully responsible for the content of the report. Transcribed Date/Time: 01/10/2024 7:11 AM
[2024-01-10 07:25] LABS: Arterial Blood Carboxyhemoglob 3.9 % (0-1.5); Blood Gas Oxyhemoglobin 93.6 % (94-97); Blood Gas THB 15.4 g/dl (12-18); Blood O2 Saturation 98.3 % (92-98.5)
[2024-01-10 13:05] VITALS: TEMP 97.9
[2024-01-10 13:07] VITALS: BP 158/90; O2SAT 100
--- NOTE | 2024-01-10 14:06 | EKG ---
Test Date: 2024-01-10 Test Time: 06:19:26 Secretary Receptionist: FRANCOIS MEASUREMENT RESULTS: Intervals: Rate: 82 NV: 186 QRSD: 114 QT: 412 QTc: 481 [place]: P: 68 NV: 186 QRS: 66 T: 31 INTERPRETIVE STATEMENTS: Normal sinus rhythm Prolonged QT Abnormal ECG Compared to ECG 04/11/2021 04:42:53 Prolonged QT interval now present Sinus tachycardia no longer present Atrial abnormality no longer present Electronically Signed On 01-10-24 14:05:41 CDT by Indra Cordova
== END 2024-01-10 12:23 | disposition home or self-care (01) ==
LOC: ER 04:49
DX: F10.129 Alcohol abuse with intoxication, unspecified (principal); R55 Syncope and collapse
CPT/HCPCS: 36415; 36600; 51702; 70450; 80048; 80076; 80307; 81003; 82077; 82805; 84484; 85025; 93005; 99285; J1953; J3411; J7030